=== PATIENT | male | born 1975 | race African-American/Black ===

== ENCOUNTER 2019-10-07 08:46 | Emergency (ER) | payer OTHER ==
[~2019-10-07] VITALS: Ht 167.6 cm; Wt 69.0 kg
[~2019-10-07 08:46] MED LIST: NOHOMEMEDICATIONS; PHENERGAN 25 MG25 M1 PO; POTASSIUM20; PRILOSEC40 MG PO
[2019-10-07] MEDS ORDERED: TRIMETHOPRIM /P10 M1 OPHTHALMIC (09:57)
[2019-10-07 10:40] VITALS: BP 122/76
== END 2019-10-07 10:41 | disposition home or self-care (01) ==
LOC: ER 08:46
DX: H10.89 Other conjunctivitis (principal); B96.89 Other specified bacterial agents as the cause of diseases classified elsewhere

== ENCOUNTER 2020-05-17 11:06 | Inpatient (IN) | payer OTHER ==
[~2020-05-17] VITALS: Ht 167.6 cm; Wt 69.4 kg
[~2020-05-17 11:06] MED LIST changes: +TRIMETHOPRIM /P10 M1 OPHTHALMIC
[2020-05-17 11:11] VITALS: BP 111/71
[2020-05-17 12:12] LABS: HEMATOCRIT 46.2 % (42.0-52.0); MCH 37.1 pg (26.0-34.0); MCHC 34.6 g/dL (28.0-37.0); RBC 4.32 mil/uL (4.50-6.00); RDW 13.1 % (10.5-14.5); WBC 11.9 thou/uL (4.0-11.0)
[2020-05-17 12:13] LABS: URINE BILIRUBIN NEGATIVE (Negative); URINE BLOOD NEGATIVE (Negative); URINE CLARITY CLEAR; URINE COLOR YELLOW; URINE GLUCOSE-RANDOM* NEGATIVE (Negative); URINE KETONES 3+ (Negative); URINE LEUKOCYTES-REFLEX NEGATIVE (Negative); URINE NITRITE-REFLEX NEGATIVE (Negative); URINE PROTEIN (DIPSTICK) TRACE (Negative); URINE SPECIFIC GRAVITY 1.025 (1.005-1.035)
[2020-05-17 12:23] LABS: CALCIUM 8.8 mg/dL (8.5-10.1); CREATININE 0.9 mg/dL (0.7-1.3); TOTAL PROTEIN 7.8 g/dL (6.4-8.2)
[2020-05-17 12:26] LABS: POTASSIUM 2.5 mmol/L (3.5-5.1)
[2020-05-17 14:25] VITALS: BP 121/73
[2020-05-17 14:50] VITALS: BP 121/73
[2020-05-17 16:03] VITALS: BP 118/81
[2020-05-17 16:51] LABS: FOLIC ACID 11.3 ng/mL (8.6-58.9)
--- NOTE | 2020-05-17 18:00 | NUR ---
ASSUMED CARE OF PATIENT APPROX 1530, PT A&OX4, VSS, DENIES PAIN. CIWA ORDERS PLACED, TRANSFER TO 3W, REPORT GIVEN. NO SIGNS OF DISTRESS.
[2020-05-17 18:34] VITALS: BP 117/79
--- NOTE | 2020-05-17 19:05 | NUR ---
PT ARRIVED TO UNIT, CIWA SCORE 1. PT ALERT & ORIENTED, STEADY ON FEET, REFUSES HOSPITAL GOWN. TELEMETRY APPLIED.
[2020-05-17 19:33] VITALS: BP 129/81
[2020-05-17 23:06] LABS: GLYCOHEMOGLOBIN (HGB A1C) 4.9 % (4.8-5.6)
--- NOTE | 2020-05-17 23:27 | NUR ---
Bottom lip swelling with mild throat tightness after Lorazepam given per CIWA protocol. Orders received and given. Benadryl and Solumedrol.
[2020-05-18 00:04] VITALS: BP 122/65
[2020-05-18 03:06] VITALS: BP 127/76
--- NOTE | 2020-05-18 03:58 | NUR ---
Patient making slow progress towards outcome goals. Vital signs and rhythn stable. High fall risks, bed alarm off per patient request. Calls out appropriately for needs to get out of bed for assistance, gait steady. Lower lip still swollen, no rashes or breathing difficulty. Lorazepam added as patient medication allergy. Swelling now only symptom after Solumedrol and Benadryl given. IVfluids infusing, urine output concentrated. CIWA 2-9
[2020-05-18 05:23] LABS: HEMATOCRIT 47.2 % (42.0-52.0); HEMOGLOBIN 16.3 gm/dL (14.0-18.0); MCH 37.2 pg (26.0-34.0); MCHC 34.5 g/dL (28.0-37.0); MCV 107.8 fL (80.0-100.0); RBC 4.38 mil/uL (4.50-6.00); WBC 9.4 thou/uL (4.0-11.0)
[2020-05-18 05:35] LABS: CALCIUM 8.6 mg/dL (8.5-10.1); CREATININE 0.9 mg/dL (0.7-1.3); MAGNESIUM 1.9 mg/dL (1.8-2.4)
[2020-05-18 05:42] LABS: POTASSIUM 3.8 mmol/L (3.5-5.1)
--- NOTE | 2020-05-18 07:02 | EKG ---
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 : 1975 Requested By: Sujatha De La Fuente Order Number: [id number] MD: Betito Rodriguez Measurements Intervals [place] Rate: 74 P: 37 AL: 154 QRS: 55 QRSD: 90 T: -51 QT: 453 QTc: 503 Interpretive Statements Sinus rhythm Consider left ventricular hypertrophy Borderline T abnormalities, inferior leads Prolonged QT interval No previous ECG available for comparison Electronically Signed On 05-18-2020 7:01:54 CDT by Betito Rodriguez [email or web address] <ELECTRONICALLY SIGNED> By: Betito Rodriguez MD, [facility] 05/18/20 0701 1135 [id number] Betito Rodriguez MD, FACC /EPI
[2020-05-18 07:08] VITALS: BP 143/88
[2020-05-18 11:34] VITALS: BP 129/77
--- NOTE | 2020-05-18 15:10 | NUR ---
INITIAL ASSESSMENT: SW reviewed chart and spoke with nursing and attending physician. Pt was admitted from home due to hypokalemia. Pt with hx of ETOH abuse. Pt does not have health insurance. SW met with pt at bedside. Introduced role of SW. Pt is alert/orientated x 4. Pt reports he lives at home with family. Prior to admission, pt was independent with ADLs. No use of DME. Pt states he does not have a PCP and is interested in information for follow up care/primary care. SW confirmed that pt does not have health insurance. Pt agreeable with referral to [facility]. SW to provide Health Resource Guide and prescription discount card prior to discharge. Plan is for pt to discharge home when medically stable. [facility] is following to assist as needed with discharge planning.
[2020-05-18 15:15] VITALS: BP 124/75
[2020-05-18 19:15] VITALS: BP 130/87
[2020-05-19 03:35] VITALS: BP 133/79
--- NOTE | 2020-05-19 04:25 | NUR ---
Pt. requested benadryl at HS for upper lip swelling. Swelling is lesser this am per pt. but still there. He slept well during the night. Up ad sarah in room with steady gait.CIWA score low and did not require prn med ,no signs of active withdrawal. No c/o nausea or vomiting. Making progress towrads care plan goals.
[2020-05-19 08:00] VITALS: BP 130/75
--- NOTE | 2020-05-19 10:11 | NUR ---
ASSUMED CARE OF PT AT 0700, PT STATES HE FEELS GREAT AND ASKED WHEN HE CAN GO HOME.
[2020-05-19 11:20] VITALS: BP 131/91
[2020-05-19] MEDS ORDERED: DIAZEPAM 2MG TAB2 MG PO (12:27)
[2020-05-19] MEDS ORDERED: VITAMIN B-1100 M2 PO (12:27)
[2020-05-19] MEDS ORDERED: PRENATAL PO (12:27)
[2020-05-19] MEDS ORDERED: BENADRYL ALLERG25 MG PO (12:27)
[2020-05-19 12:56] VITALS: BP 131/91
--- NOTE | 2020-05-19 12:57 | NUR ---
DISCHARGE NOTE: SW reviewed chart and spoke with nursing and attending physician. Pt is medically stable for discharge home today. SW met with pt at bedside to discuss discharge plan. SW provided pt with Health Resource Guide and prescription discount card. Pt states he will fill his new prescriptions and declines need for scripts to be filled at [facility]. Pt states he will have transportation home. No additional SW needs identified at this time, but is available to assist should needs arise.
== END 2020-05-19 13:59 | disposition home or self-care (01) | DRG 896 ==
LOC: ER 11:06 → EROBS 13:35 → 4W 15:14 → 3W 18:28
PROVIDERS: Nurse Practitioner Family; ADMIT Hospitalist; ATTEND Hospitalist
DX: F10.139 Alcohol abuse with withdrawal, unspecified (principal); G93.41 Metabolic encephalopathy; E87.6 Hypokalemia; E83.42 Hypomagnesemia; F10.129 Alcohol abuse with intoxication, unspecified; F17.210 Nicotine dependence, cigarettes, uncomplicated; Y90.9 Presence of alcohol in blood, level not specified
CPT/HCPCS: 10879